=== PATIENT | female | born 1970 | race African-American/Black ===

== ENCOUNTER 2019-02-08 10:34 | Inpatient (IN) | payer OTHER ==
[2019-02-08 10:52] VITALS: BMI 20.5
--- NOTE | 2019-02-08 12:30 | HP ---
CIWA Score - Admission Criteria [facility]ASAS Guidelines: Admission for Medically Managed Detox: Requires at least one of the followin. CIWA greater than 12 2. Seizures within the past 24 hours 3. Delirium tremens within the past 24 hours 4. Hallucinations within the past 24 hours 5. Acute intervention needed for co occurring medical disorder 6. Acute intervention needed for co occurring psychiatric disorder 7. Severe withdrawal that cannot be handled at a lower level of care (continued vomiting, continued diarrhea, abnormal vital signs) requiring intravenous medication and/or fluids 8. Admission ROS [facility] - HPI Allergies/Adverse Reactions: Allergies Allergy/AdvReac Type Severity Reaction Status Date / Time No Known Allergies Allergy Verified 02/08/19 10:47 History of Present Illness: pt here requesting rehab from cocaine and cannabis use , reports 100$ /week every 2 days cocaine via inhalation x 11 years , tobacco 1/ ppd cannabis : denies etoh - occasional pshx ; ventral hernia has appt February 24 w/ surgeon for planned procedure , c-sx , TARYN , GIB s/p GT / removal , mesh placed , back pain 4 children : 12,16, 29, 30 , youngest 2 w/ godmother in [place] Exam Limitations: No Limitations - Ebola screening Have you traveled outside of the country in the last 21 days: No (N) Have you had contact with anyone from an Ebola affected area: No Do you have a fever: No - Review of Systems Constitutional: No Symptoms Reported EENT: reports: No Symptoms Reported Respiratory: reports: No Symptoms reported Cardiac: reports: No Symptoms Reported GI: reports: No Symptoms Reported : reports: No Symptoms Reported Musculoskeletal: reports: See HPI, Back Pain (chronic) Neuro: reports: No Symptoms reported Endocrine: reports: No Symptoms Reported Psychiatric: reports: Orientated x3 Patient History - Smoking Cessation Smoking history: Current every day smoker Have you smoked in the past 12 months: Yes Hx Chewing Tobacco Use: No Initiated information on smoking cessation: No - Substances abused Crack Substance route: Smoking Frequency: 3-6 times per week Amount used: 2BAGS Age of first use: 35 Date of last use: 02/07/19 Family Disease History - Family Disease History Family History: Denies Admission Physical Exam [facility] - Vital Signs Vital Signs: Vital Signs - 24 hr 02/08/19 10:47 Temperature 98.3 F Pulse Rate 78 Respiratory 18 Rate Blood Pressure 144/92 - Physical General Appearance: Yes: No Apparent Distress HEENTM: Yes: EOMI, Normocephalic, Normal Voice, Other (poor dentition , many missing teeth) Respiratory: Yes: Normal Breath Sounds, No Respiratory Distress, No Accessory Muscle Use Neck: Yes: No masses,lesions,Nodules, Trachea in good position Cardiology: Yes: Regular Rhythm, Regular Rate, S1, S2 Abdominal: Yes: Distended, Hernia, Surgical Scar Extremities: Yes: Normal Range of Motion, Non-Tender Neurological: Yes: Fully Oriented, Alert, Motor Strength 5/5 Integumentary: Yes: Warm - Diagnostic (1) Cocaine abuse, episodic Current Visit: Yes Status: Chronic Breathalyzer - Breathalyzer Breathalyzer: 0 Urine Drug Screen - Test Device Lot number: [id number] Expiration date: 11/04/20 - Control Is test valid?: Yes - Results Drug screen NEGATIVE: No Urine drug screen results: THC-Marijuana, POONAM-Cocaine Inpatient Rehab Admission - Rehab Decision to Admit Inpatient rehab admission?: Yes - Initial Determination Are CD services needed?: Yes Free of communicable disease: Yes Not in need of hospitalization: Yes - Rehab Admission Criteria Previous failed treatment: No Poor recovery environment: No Comorbidities: No Lacks judgement: Yes Patient is meeting Inpatient Rehab admission criteria:: Yes
[2019-02-08] MEDS ORDERED: P-EPHED 60MG/TRIPROLIDI 2.5MG TABLET PO PRN (12:46)
[2019-02-08] MEDS ORDERED: MENTHOL/PHENOL 1 EACH UD MM PRN (12:46)
[2019-02-08] MEDS ORDERED: guaiFENesin 200 MG/10 ML 10 ML UNIT-DOSE CUPS PO PRN (12:46)
[2019-02-08] MEDS ORDERED: MAG HYDROX/AL HYDROX/SIMETH 30 ML UNIT-DOSE CUP PO PRN (12:46)
[2019-02-08] MEDS ORDERED: MAGNESIUM CITRATE 300 ML BOTTLE PO PRN (12:46)
[2019-02-08] MEDS ORDERED: TUBERCULIN PPD 5 TU/0.1ML VIAL ID ONE (14:27)
[2019-02-08] MEDS: MAGNESIUM HYDROX 2400MG/30ML ORAL SUSPENSION 30 ML CUP PO PRN (15:24)
[2019-02-08 18:24] LABS: HEMATOCRIT 31.9 % (32.4-45.2); HEMOGLOBIN 9.4 GM/dL (10.7-15.3); MCH 20.4 pg (25.7-33.7); MCHC 29.5 g/dl (32.0-36.0); MEAN CELL VOLUME 69.3 fl (80-96); MEAN PLT VOLUME 8.2 fl (7.5-11.1); PLATELET COUNT 274 K/MM3 (134-434); RBC 4.61 M/mm3 (3.60-5.2); RDW 17.9 % (11.6-15.6); WHITE BLOOD COUNT 4.8 K/mm3 (4.0-10.0)
[2019-02-08 18:59] LABS: ALBUMIN 3.7 g/dl (3.4-5.0); BILIRUBIN,TOTAL 0.4 mg/dL (0.2-1); CALCIUM 9.1 mg/dL (8.5-10.1); CREATININE 1.1 mg/dL (0.55-1.3); POTASSIUM 3.3 mmol/L (3.5-5.1); TOT PROT 7.9 g/dl (6.4-8.2)
[2019-02-08] MEDS: THIAMINE HCL 100 MG TABLET (FP) PO SCH (21:16)
[2019-02-08] MEDS: MELATONIN 5 MG TABLETS PO PRN (21:16)
[2019-02-08 23:50] LABS: URINE COLOR YELLOW
[2019-02-08 23:51] LABS: URINE APPEARANCE CLOUDY; URINE BILIRUBIN NEGATIVE (NEGATIVE); URINE GLUCOSE (UA) NEGATIVE (NEGATIVE); URINE KETONE NEGATIVE (NEGATIVE); URINE LEUK ESTERASE TRACE (NEGATIVE); URINE NITRITE NEGATIVE (NEGATIVE); URINE PROTEIN TRACE (NEGATIVE)
[2019-02-09 00:07] LABS: HYALINE CASTS 5 /lpf (0-8); URINE BACTERIA 94.2 /hpf (NEGATIVE); URINE RBC 0 /hpf (0-4); URINE WBC 3 /hpf (0-5)
[2019-02-09 01:48] LABS: URINE CRYSTALS FEW /hpf
[2019-02-09] MEDS: PRENATAL VITAMINS W/ FOLIC ACID TABLET (FP) PO SCH (09:15)
--- NOTE | 2019-02-09 09:48 | PN ---
[facility] Progress Note Note: Vital Signs Temperature 97.9 F 02/09/19 07:09 Pulse Rate 69 02/09/19 07:09 Respiratory Rate 18 02/09/19 07:09 Blood Pressure 138/90 02/09/19 07:09 O2 Sat by Pulse Oximetry (%) Laboratory Last Values WBC 4.8 K/mm3 (4.0-10.0) 02/08/19 13:00 RBC 4.61 M/mm3 (3.60-5.2) 02/08/19 13:00 Hgb 9.4 GM/dL (10.7-15.3) L 02/08/19 13:00 Hct 31.9 % (32.4-45.2) L 02/08/19 13:00 MCV 69.3 fl (80-96) L 02/08/19 13:00 MCH 20.4 pg (25.7-33.7) L 02/08/19 13:00 MCHC 29.5 g/dl (32.0-36.0) L 02/08/19 13:00 RDW 17.9 % (11.6-15.6) H 02/08/19 13:00 Plt Count 274 K/MM3 (134-434) 02/08/19 13:00 MPV 8.2 fl (7.5-11.1) 02/08/19 13:00 Sodium 143 mmol/L (136-145) 02/08/19 13:00 Potassium 3.3 mmol/L (3.5-5.1) L 02/08/19 13:00 Chloride 105 mmol/L (98-107) 02/08/19 13:00 Carbon Dioxide 31 mmol/L (21-32) 02/08/19 13:00 Anion Gap 6 MMOL/L (8-16) L 02/08/19 13:00 BUN 12 mg/dL (7-18) 02/08/19 13:00 Creatinine 1.1 mg/dL (0.55-1.3) 02/08/19 13:00 Est GFR (CKD-EPI)AfAm 67.79 02/08/19 13:00 Est GFR (CKD-EPI)NonAf 58.49 02/08/19 13:00 Random Glucose 89 mg/dL (74-106) 02/08/19 13:00 Calcium 9.1 mg/dL (8.5-10.1) 02/08/19 13:00 Total Bilirubin 0.4 mg/dL (0.2-1) 02/08/19 13:00 AST 31 U/L (15-37) 02/08/19 13:00 ALT 17 U/L (13-61) 02/08/19 13:00 Alkaline Phosphatase 74 U/L (45-117) 02/08/19 13:00 Total Protein 7.9 g/dl (6.4-8.2) 02/08/19 13:00 Albumin 3.7 g/dl (3.4-5.0) 02/08/19 13:00 Urine Color Yellow 02/08/19 14:00 Urine Appearance Cloudy 02/08/19 14:00 Urine pH 6.0 (5.0-8.0) 02/08/19 14:00 Ur Specific [place] 1.029 (1.010-1.035) 02/08/19 14:00 Urine Protein Trace (NEGATIVE) 02/08/19 14:00 Urine Glucose (UA) Negative (NEGATIVE) 02/08/19 14:00 Urine Ketones Negative (NEGATIVE) 02/08/19 14:00 Urine Blood Negative (NEGATIVE) 02/08/19 14:00 Urine Nitrite Negative (NEGATIVE) 02/08/19 14:00 Urine Bilirubin Negative (NEGATIVE) 02/08/19 14:00 Urine Urobilinogen 1.0 mg/dL (0.2-1.0) 02/08/19 14:00 Ur Leukocyte Esterase Trace (NEGATIVE) 02/08/19 14:00 Urine WBC (Auto) 3 /hpf (0-5) 02/08/19 14:00 Urine RBC (Auto) 0 /hpf (0-4) 02/08/19 14:00 Urine Casts (Auto) 5 /lpf (0-8) 02/08/19 14:00 U Epithel Cells (Auto) 5.0 /HPF (0-5/HPF) 02/08/19 14:00 Urine Crystals (Auto) Few /hpf 02/08/19 14:00 Urine Bacteria (Auto) 94.2 /hpf (NEGATIVE) 02/08/19 14:00 c/o of constipation without any relief with milk of magnesia, reports last BM five days ago, hx of abdominal hernia pending surgery, denies pain, melena, nausea or vomiting. AOx3 no distress no adventitious breath sounds ABD non-tender, non distended , + hernia retractable, + surgical scar full ROM, no gait abnormality dx: anemia, constipation, hypokalemia plan: lactulose TID PO PRN increase PO fluids k-dur 20 qd repeat cbc and repeat potassium in AM Patient encourage to follow up with primary care physician upon discharge for continuity of care continue to monitor
[2019-02-09] MEDS ORDERED: NICOTINE POLACRILEX 2 MG GUM BUC PRN (09:49)
[2019-02-09] MEDS: POTASSIUM CHLORIDE TABS 20 MEQ TABLET.ER (FP) PO SCH (10:05)
[2019-02-09] MEDS: NICOTINE 14 MG/24 HOURS TOPICAL PATCH TD SCH (10:05)
[2019-02-09] MEDS: LACTULOSE 20 GM/30 ML UDC (FOR ORAL USE ONLY) PO PRN (12:27)
[2019-02-09] MEDS: IBUPROFEN 400 MG TABLET (FP) PO PRN (12:46)
[2019-02-09] MEDS: MELATONIN 5 MG TABLETS PO PRN (21:57)
[2019-02-09] MEDS: THIAMINE HCL 100 MG TABLET (FP) PO SCH (21:58)
[2019-02-10] MEDS: PRENATAL VITAMINS W/ FOLIC ACID TABLET (FP) PO SCH (10:15)
[2019-02-10] MEDS: POTASSIUM CHLORIDE TABS 20 MEQ TABLET.ER (FP) PO SCH (10:15)
[2019-02-10] MEDS: NICOTINE 14 MG/24 HOURS TOPICAL PATCH TD SCH (10:16)
[2019-02-10] MEDS: LACTULOSE 20 GM/30 ML UDC (FOR ORAL USE ONLY) PO PRN (10:17)
[2019-02-10 12:06] LABS: BASO % 0.9 % (0-2.0); EOS % 0.4 % (0-4.5); HEMATOCRIT 27.1 % (32.4-45.2); HEMOGLOBIN 8.1 GM/dL (10.7-15.3); LYMPH % 28.9 % (8-40); MCH 20.6 pg (25.7-33.7); MCHC 29.9 g/dl (32.0-36.0); MEAN PLT VOLUME 7.7 fl (7.5-11.1); MONO % 9.3 % (3.8-10.2); NEUT % 60.5 % (42.8-82.8); PLATELET COUNT 230 K/MM3 (134-434); RBC 3.93 M/mm3 (3.60-5.2); RDW 18.1 % (11.6-15.6); WHITE BLOOD COUNT 4.3 K/mm3 (4.0-10.0)
[2019-02-10 13:57] LABS: PLATELET ESTIMATE ADEQUATE
[2019-02-10] MEDS: IBUPROFEN 400 MG TABLET (FP) PO PRN (21:25)
[2019-02-10] MEDS: MELATONIN 5 MG TABLETS PO PRN (21:25)
[2019-02-10] MEDS: THIAMINE HCL 100 MG TABLET (FP) PO SCH (21:26)
--- NOTE | 2019-02-11 10:02 | PN ---
[facility] Progress Note Note: 48 years old female admitted on 02/08/19 for crack rehab K+ 3.3 on 02/08/19 treated with K+ supplement od 02/10/19 K+ 3.2 increase K+ supplement bid repeat K+ on 02/15/19 Laboratory Last Values WBC 4.3 K/mm3 (4.0-10.0) 02/10/19 08:50 RBC 3.93 M/mm3 (3.60-5.2) 02/10/19 08:50 Hgb 8.1 GM/dL (10.7-15.3) L 02/10/19 08:50 Hct 27.1 % (32.4-45.2) L D 02/10/19 08:50 MCV 69.0 fl (80-96) L 02/10/19 08:50 MCH 20.6 pg (25.7-33.7) L 02/10/19 08:50 MCHC 29.9 g/dl (32.0-36.0) L 02/10/19 08:50 RDW 18.1 % (11.6-15.6) H 02/10/19 08:50 Plt Count 230 K/MM3 (134-434) 02/10/19 08:50 MPV 7.7 fl (7.5-11.1) 02/10/19 08:50 Absolute Neuts (auto) 2.6 K/mm3 (1.5-8.0) 02/10/19 08:50 Neutrophils % 60.5 % (42.8-82.8) 02/10/19 08:50 Lymphocytes % 28.9 % (8-40) 02/10/19 08:50 Monocytes % 9.3 % (3.8-10.2) 02/10/19 08:50 Eosinophils % 0.4 % (0-4.5) 02/10/19 08:50 Basophils % 0.9 % (0-2.0) 02/10/19 08:50 Nucleated RBC % 0 % (0-0) 02/10/19 08:50 Platelet Estimate Adequate 02/10/19 08:50 Poikilocytosis 2+ 02/10/19 08:50 Microcytosis 2+ 02/10/19 08:50 Sodium 143 mmol/L (136-145) 02/08/19 13:00 Potassium 3.2 mmol/L (3.5-5.1) L 02/10/19 08:50 Chloride 105 mmol/L (98-107) 02/08/19 13:00 Carbon Dioxide 31 mmol/L (21-32) 02/08/19 13:00 Anion Gap 6 MMOL/L (8-16) L 02/08/19 13:00 BUN 12 mg/dL (7-18) 02/08/19 13:00 Creatinine 1.1 mg/dL (0.55-1.3) 02/08/19 13:00 Est GFR (CKD-EPI)AfAm 67.79 02/08/19 13:00 Est GFR (CKD-EPI)NonAf 58.49 02/08/19 13:00 Random Glucose 89 mg/dL (74-106) 02/08/19 13:00 Calcium 9.1 mg/dL (8.5-10.1) 02/08/19 13:00 Total Bilirubin 0.4 mg/dL (0.2-1) 02/08/19 13:00 AST 31 U/L (15-37) 02/08/19 13:00 ALT 17 U/L (13-61) 02/08/19 13:00 Alkaline Phosphatase 74 U/L (45-117) 02/08/19 13:00 Total Protein 7.9 g/dl (6.4-8.2) 02/08/19 13:00 Albumin 3.7 g/dl (3.4-5.0) 02/08/19 13:00 Urine Color Yellow 02/08/19 14:00 Urine Appearance Cloudy 02/08/19 14:00 Urine pH 6.0 (5.0-8.0) 02/08/19 14:00 Ur Specific [place] 1.029 (1.010-1.035) 02/08/19 14:00 Urine Protein Trace (NEGATIVE) 02/08/19 14:00 Urine Glucose (UA) Negative (NEGATIVE) 02/08/19 14:00 Urine Ketones Negative (NEGATIVE) 02/08/19 14:00 Urine Blood Negative (NEGATIVE) 02/08/19 14:00 Urine Nitrite Negative (NEGATIVE) 02/08/19 14:00 Urine Bilirubin Negative (NEGATIVE) 02/08/19 14:00 Urine Urobilinogen 1.0 mg/dL (0.2-1.0) 02/08/19 14:00 Ur Leukocyte Esterase Trace (NEGATIVE) 02/08/19 14:00 Urine WBC (Auto) 3 /hpf (0-5) 02/08/19 14:00 Urine RBC (Auto) 0 /hpf (0-4) 02/08/19 14:00 Urine Casts (Auto) 5 /lpf (0-8) 02/08/19 14:00 U Epithel Cells (Auto) 5.0 /HPF (0-5/HPF) 02/08/19 14:00 Urine Crystals (Auto) Few /hpf 02/08/19 14:00 Urine Bacteria (Auto) 94.2 /hpf (NEGATIVE) 02/08/19 14:00 RPR Titer Nonreactive (NONREACTIVE) 02/08/19 13:00
[2019-02-11] MEDS: PRENATAL VITAMINS W/ FOLIC ACID TABLET (FP) PO SCH (10:12)
[2019-02-11] MEDS: NICOTINE 14 MG/24 HOURS TOPICAL PATCH TD SCH (10:12)
[2019-02-11] MEDS: LACTULOSE 20 GM/30 ML UDC (FOR ORAL USE ONLY) PO PRN (10:17)
[2019-02-11] MEDS: POTASSIUM CHLORIDE TABS 20 MEQ TABLET.ER (FP) PO SCH ×3 (10:48→21:16)
--- NOTE | 2019-02-11 12:01 | PN ---
[facility] Progress Note Note: PT REQUESTS LACTULOSE ONCE DAILY AND NOT TID PRN. HOLD IF DIARRHEA.
[2019-02-11] MEDS: THIAMINE HCL 100 MG TABLET (FP) PO SCH (21:16)
[2019-02-11] MEDS: MELATONIN 5 MG TABLETS PO PRN (21:16)
[2019-02-12] MEDS: IBUPROFEN 400 MG TABLET (FP) PO PRN ×2 (00:24→21:05)
[2019-02-12] MEDS: ACETAMINOPHEN 325 MG TABLET (FP) PO PRN ×2 (06:17→10:24)
[2019-02-12] MEDS: LACTULOSE 20 GM/30 ML UDC (FOR ORAL USE ONLY) PO SCH (10:22)
[2019-02-12] MEDS: PRENATAL VITAMINS W/ FOLIC ACID TABLET (FP) PO SCH (10:22)
[2019-02-12] MEDS: POTASSIUM CHLORIDE TABS 20 MEQ TABLET.ER (FP) PO SCH ×2 (10:22→21:03)
[2019-02-12] MEDS: NICOTINE 14 MG/24 HOURS TOPICAL PATCH TD SCH (10:23)
[2019-02-12] MEDS ORDERED: PT OWN MED DRAWER 7, Y5N ONE ×2 (19:39→22:45)
[2019-02-12] MEDS: THIAMINE HCL 100 MG TABLET (FP) PO SCH (21:03)
[2019-02-12] MEDS: hydrOXYzine PAMOATE 25 MG CAPSULE (FP) PO PRN (21:03)
[2019-02-12] MEDS ORDERED: INSULIN (NOVOLOG) ASPART 100 UNITS/ML 10ML VIAL ONE (22:48)
[2019-02-13] MEDS: PRENATAL VITAMINS W/ FOLIC ACID TABLET (FP) PO SCH (10:31)
[2019-02-13] MEDS: LACTULOSE 20 GM/30 ML UDC (FOR ORAL USE ONLY) PO SCH (10:32)
[2019-02-13] MEDS: POTASSIUM CHLORIDE TABS 20 MEQ TABLET.ER (FP) PO SCH ×2 (10:32→21:23)
[2019-02-13] MEDS: ACETAMINOPHEN 325 MG TABLET (FP) PO PRN (10:33)
[2019-02-13] MEDS: NICOTINE 14 MG/24 HOURS TOPICAL PATCH TD SCH (10:39)
--- NOTE | 2019-02-13 15:45 | PN ---
[facility] Progress Note Note: complaint of pain in the gum and tooth had been seen by dentist stated was prescribed antibiotics amoxicllin 500mgs po tid examination poor dental with gingivitis with pain Vital Signs Temperature 97.8 F 02/13/19 07:32 Pulse Rate 72 02/13/19 07:32 Respiratory Rate 18 02/13/19 07:32 Blood Pressure 132/82 02/13/19 07:32 O2 Sat by Pulse Oximetry (%) treatment amocicillin 500 mgs po tid for 7 days,follow up with dentist after discharge
[2019-02-13] MEDS: AMOXICILLIN 500 MG CAPSULE (FP) PO SCH ×2 (17:39→21:23)
[2019-02-13] MEDS: THIAMINE HCL 100 MG TABLET (FP) PO SCH (21:23)
[2019-02-13] MEDS: MELATONIN 5 MG TABLETS PO PRN (21:23)
[2019-02-13] MEDS: IBUPROFEN 400 MG TABLET (FP) PO PRN (21:24)
[2019-02-13] MEDS: hydrOXYzine PAMOATE 25 MG CAPSULE (FP) PO PRN (21:24)
[2019-02-14] MEDS: AMOXICILLIN 500 MG CAPSULE (FP) PO SCH ×3 (06:16→21:15)
[2019-02-14] MEDS: LACTULOSE 20 GM/30 ML UDC (FOR ORAL USE ONLY) PO SCH (10:06)
[2019-02-14] MEDS: POTASSIUM CHLORIDE TABS 20 MEQ TABLET.ER (FP) PO SCH ×2 (10:07→21:15)
[2019-02-14] MEDS: PRENATAL VITAMINS W/ FOLIC ACID TABLET (FP) PO SCH (10:07)
[2019-02-14] MEDS: NICOTINE 14 MG/24 HOURS TOPICAL PATCH TD SCH (10:08)
--- NOTE | 2019-02-14 10:16 | PN ---
[facility] Progress Note Note: Potassium is now within normal range; potassium supplementation discontinued after today's doses. CBC, BMP 02/10/19 08:50 02/14/19 07:00
[2019-02-14] MEDS: THIAMINE HCL 100 MG TABLET (FP) PO SCH (21:14)
[2019-02-14] MEDS: ACETAMINOPHEN 325 MG TABLET (FP) PO PRN (21:16)
[2019-02-14] MEDS: hydrOXYzine PAMOATE 25 MG CAPSULE (FP) PO PRN (21:17)
[2019-02-15] MEDS: MAGNESIUM HYDROX 2400MG/30ML ORAL SUSPENSION 30 ML CUP PO PRN (06:12)
[2019-02-15] MEDS: AMOXICILLIN 500 MG CAPSULE (FP) PO SCH ×3 (06:12→21:23)
--- NOTE | 2019-02-15 09:57 | CONSULT ---
[facility] Psychiatric Consult - Data Date of interview: 02/15/19 Admission source: [facility] Identifying data: Patient is a 48 year old female, mother of four, unemployed, and is currently residing with mother. This is one of multiple admissions for patient in rehab. Patient admitted to for alcohol, marijuana, and cocaine dependence. Substance Abuse History: - Smoking Cessation. Smoking history: Current every day smoker. Have you smoked in the past 12 months: Yes. Hx Chewing Tobacco Use : No. Initiated information on smoking cessation: No. - Substances abused. * * Crack. Substance route: Smoking. Frequency: 3-6 times per week. Amount used : 2BAGS. Age of first use: 35. Date of last use: 02/07/19 Medical History: ventral hernia has appt February 24 w/ surgeon for planned procedure , c-sx , TARYN , GIB s/p GT / removal , mesh placed , back pain Psychiatric History: Patient denies h/o psychiatric hospitalizations, and suicide attempt. Patient reports past history of outpatient psychiatric care approximately 8 years ago to address insomnnia. She was prescribed trazodone 50mg which was eventually increased to 150mg HS. Ms. Paniagua last accepted trazodone 8 years ago. Patient denies h/o psychotic symptoms but reports feeling sad and depressed since CPS took her children away 10 years ago. At present patient reports difficulty sleeping. Physical/Sexual Abuse/Trauma History: denies. Mental Status Exam - Mental Status Exam Alert and Oriented to: Time, Place, Person Cognitive Function: Good Patient Appearance: Well Groomed Mood: Sad Affect: Appropriate Patient Behavior: Appropriate, Cooperative Speech Pattern: Appropriate Voice Loudness: Normal Thought Process: Goal Oriented Thought Disorder: Not Present Hallucinations: Denies Suicidal Ideation: Denies Homicidal Ideation: Denies Insight/Judgement: Poor Sleep: Poorly Appetite: Fair Muscle strength/Tone: Normal Gait/Station: Normal Psychiatric Findings - Problem List ([place] 1, 2,3) (1) Marijuana dependence Current Visit: Yes Status: Chronic (2) Cocaine abuse, episodic Current Visit: Yes Status: Chronic (3) Substance-induced sleep disorder Current Visit: Yes Status: Acute (4) Substance induced mood disorder Current Visit: Yes Status: Suspected - Initial Treatment Plan Initial Treatment Plan: Psychoeducation provided. Rehab in progress. Will order Trazodone 50mg Hs. Benefits and side effects discussed. Verbal consent given.
[2019-02-15] MEDS: PRENATAL VITAMINS W/ FOLIC ACID TABLET (FP) PO SCH (09:59)
[2019-02-15] MEDS: NICOTINE 14 MG/24 HOURS TOPICAL PATCH TD SCH (09:59)
[2019-02-15] MEDS ORDERED: LACTULOSE 20 GM/30 ML UDC (FOR ORAL USE ONLY) PO SCH (10:00)
[2019-02-15] MEDS: DOCUSATE SODIUM 100 MG CAPSULE (FP) PO SCH (21:25)
[2019-02-15] MEDS: IBUPROFEN 400 MG TABLET (FP) PO PRN (21:25)
[2019-02-15] MEDS: traZODone HCL 50 MG TABLET (FP) PO SCH (21:25)
[2019-02-15] MEDS: MELATONIN 5 MG TABLETS PO PRN (21:26)
[2019-02-15] MEDS: THIAMINE HCL 100 MG TABLET (FP) PO SCH (21:50)
[2019-02-16] MEDS: AMOXICILLIN 500 MG CAPSULE (FP) PO SCH ×3 (06:32→21:35)
[2019-02-16] MEDS: LACTULOSE 20 GM/30 ML UDC (FOR ORAL USE ONLY) PO SCH (10:02)
[2019-02-16] MEDS: PRENATAL VITAMINS W/ FOLIC ACID TABLET (FP) PO SCH (10:03)
[2019-02-16] MEDS: NICOTINE 14 MG/24 HOURS TOPICAL PATCH TD SCH (10:03)
[2019-02-16] MEDS: IBUPROFEN 400 MG TABLET (FP) PO PRN (10:04)
[2019-02-16] MEDS ORDERED: PT OWN MED DRAWER 7, Y5N ONE ×2 (21:27→23:21)
[2019-02-16] MEDS: traZODone HCL 50 MG TABLET (FP) PO SCH (21:35)
[2019-02-16] MEDS: DOCUSATE SODIUM 100 MG CAPSULE (FP) PO SCH (21:35)
[2019-02-16] MEDS: ACETAMINOPHEN 325 MG TABLET (FP) PO PRN (21:36)
[2019-02-16] MEDS: hydrOXYzine PAMOATE 25 MG CAPSULE (FP) PO PRN (21:36)
[2019-02-16] MEDS: THIAMINE HCL 100 MG TABLET (FP) PO SCH (21:37)
[2019-02-16] MEDS: MELATONIN 5 MG TABLETS PO PRN (21:37)
[2019-02-17] MEDS: AMOXICILLIN 500 MG CAPSULE (FP) PO SCH ×3 (06:17→21:36)
--- NOTE | 2019-02-17 09:11 | PN ---
[facility] Progress Note Note: Psychiatric nurse practitioner note: Patient reports difficulty sleeping. Will d/c Trazodone 50mg and order Trazodone 100mg HS. Verbal consent given.
[2019-02-17] MEDS: PRENATAL VITAMINS W/ FOLIC ACID TABLET (FP) PO SCH (10:22)
[2019-02-17] MEDS: NICOTINE 14 MG/24 HOURS TOPICAL PATCH TD SCH (10:22)
[2019-02-17] MEDS: LACTULOSE 20 GM/30 ML UDC (FOR ORAL USE ONLY) PO SCH (10:22)
[2019-02-17] MEDS: hydrOXYzine PAMOATE 25 MG CAPSULE (FP) PO PRN (21:36)
[2019-02-17] MEDS: DOCUSATE SODIUM 100 MG CAPSULE (FP) PO SCH (21:36)
[2019-02-17] MEDS: THIAMINE HCL 100 MG TABLET (FP) PO SCH (21:36)
[2019-02-17] MEDS: traZODone HCL 100 MG TABLET (FP) PO SCH (21:38)
[2019-02-17] MEDS: ACETAMINOPHEN 325 MG TABLET (FP) PO PRN (21:38)
[2019-02-17] MEDS ORDERED: PT OWN MED DRAWER 7, Y5N ONE (22:12)
[2019-02-18] MEDS: AMOXICILLIN 500 MG CAPSULE (FP) PO SCH ×3 (06:39→21:17)
--- NOTE | 2019-02-18 09:25 | PN ---
[facility] Progress Note Note: Psychiatric nurse practitioner note: Patient continues to report poor sleep despite accepting trazodone 100mg HS last night. Patient refused an increase in Melatonin. Will order Belsomra 10mg HS. Benefits and side effects discussed. Verbal consent given.
[2019-02-18] MEDS: NICOTINE 14 MG/24 HOURS TOPICAL PATCH TD SCH (10:55)
[2019-02-18] MEDS: PRENATAL VITAMINS W/ FOLIC ACID TABLET (FP) PO SCH (10:55)
[2019-02-18] MEDS: LACTULOSE 20 GM/30 ML UDC (FOR ORAL USE ONLY) PO SCH (10:57)
--- NOTE | 2019-02-18 11:47 | PN ---
[facility] Progress Note (SOAP) Subjective: PT IS SCHEDULED TO DISCHARGE ON 02/21/19. PT MET WITH COUNSELLING AND HAS BEEN REFERRED TO THE [facility], [address] [place] [address], [place], [place] FOR CD AFTERCARE. PT REPORTS SH HAS PRIMARY CARE WITH DR. DUVALL IN [place], [place]. ALERT O X 3. DENIES S/H/I. Objective: 02/18/19 11:46 Vital Signs - 24 hr 02/18/19 02/18/19 02/18/19 00:30 03:30 07:24 Temperature 97.8 F Pulse Rate 76 Respiratory 18 18 18 Rate Blood Pressure 118/76 Laboratory Tests 02/08/19 02/08/19 02/08/19 13:00 13:00 13:00 WBC 4.8 RBC 4.61 Hgb 9.4 L Hct 31.9 L MCV 69.3 L MCH 20.4 L MCHC 29.5 L RDW 17.9 H Plt Count 274 MPV 8.2 Absolute Neuts (auto) Neutrophils % Lymphocytes % Monocytes % Eosinophils % Basophils % Nucleated RBC % Platelet Estimate Poikilocytosis Microcytosis Sodium 143 Potassium 3.3 L Chloride 105 Carbon Dioxide 31 Anion Gap 6 L BUN 12 Creatinine 1.1 Est GFR (CKD-EPI)AfAm 67.79 Est GFR (CKD-EPI)NonAf 58.49 Random Glucose 89 Calcium 9.1 Total Bilirubin 0.4 AST 31 ALT 17 Alkaline Phosphatase 74 Total Protein 7.9 Albumin 3.7 Urine Color Urine Appearance Urine pH Ur Specific [place] Urine Protein Urine Glucose (UA) Urine Ketones Urine Blood Urine Nitrite Urine Bilirubin Urine Urobilinogen Ur Leukocyte Esterase Urine WBC (Auto) Urine RBC (Auto) Urine Casts (Auto) U Epithel Cells (Auto) Urine Crystals (Auto) Urine Bacteria (Auto) RPR Titer Nonreactive 02/08/19 02/10/19 02/10/19 14:00 08:50 08:50 WBC 4.3 RBC 3.93 Hgb 8.1 L Hct 27.1 L D MCV 69.0 L MCH 20.6 L MCHC 29.9 L RDW 18.1 H Plt Count 230 MPV 7.7 Absolute Neuts (auto) 2.6 Neutrophils % 60.5 Lymphocytes % 28.9 Monocytes % 9.3 Eosinophils % 0.4 Basophils % 0.9 Nucleated RBC % 0 Platelet Estimate Adequate Poikilocytosis 2+ Microcytosis 2+ Sodium Potassium 3.2 L Chloride Carbon Dioxide Anion Gap BUN Creatinine Est GFR (CKD-EPI)AfAm Est GFR (CKD-EPI)NonAf Random Glucose Calcium Total Bilirubin AST ALT Alkaline Phosphatase Total Protein Albumin Urine Color Yellow Urine Appearance Cloudy Urine pH 6.0 Ur Specific [place] 1.029 Urine Protein Trace Urine Glucose (UA) Negative Urine Ketones Negative Urine Blood Negative Urine Nitrite Negative Urine Bilirubin Negative Urine Urobilinogen 1.0 Ur Leukocyte Esterase Trace Urine WBC (Auto) 3 Urine RBC (Auto) 0 Urine Casts (Auto) 5 U Epithel Cells (Auto) 5.0 Urine Crystals (Auto) Few Urine Bacteria (Auto) 94.2 RPR Titer 02/14/19 07:00 WBC RBC Hgb Hct MCV MCH MCHC RDW Plt Count MPV Absolute Neuts (auto) Neutrophils % Lymphocytes % Monocytes % Eosinophils % Basophils % Nucleated RBC % Platelet Estimate Poikilocytosis Microcytosis Sodium Potassium 3.6 Chloride Carbon Dioxide Anion Gap BUN Creatinine Est GFR (CKD-EPI)AfAm Est GFR (CKD-EPI)NonAf Random Glucose Calcium Total Bilirubin AST ALT Alkaline Phosphatase Total Protein Albumin Urine Color Urine Appearance Urine pH Ur Specific [place] Urine Protein Urine Glucose (UA) Urine Ketones Urine Blood Urine Nitrite Urine Bilirubin Urine Urobilinogen Ur Leukocyte Esterase Urine WBC (Auto) Urine RBC (Auto) Urine Casts (Auto) U Epithel Cells (Auto) Urine Crystals (Auto) Urine Bacteria (Auto) RPR Titer Home Medications Medication Instructions Recorded traZODone HCL [Desyrel -] 100 mg PO HS #30 tablet 02/20/19 Assessment: 02/18/19 11:47 NAD MEDICALLY STABLE Plan: FOLLOW UP WITH CD AFTERCARE RECOMMENDED. FOLLOW UP WITH PCP FOR MEDICAL MANAGEMENT 1-2 WEEKS AFTER DISCHARGE.
[2019-02-18] MEDS: MAGNESIUM HYDROX 2400MG/30ML ORAL SUSPENSION 30 ML CUP PO PRN (15:57)
[2019-02-18] MEDS: DOCUSATE SODIUM 100 MG CAPSULE (FP) PO SCH (21:17)
[2019-02-18] MEDS: hydrOXYzine PAMOATE 25 MG CAPSULE (FP) PO PRN (21:17)
[2019-02-18] MEDS: THIAMINE HCL 100 MG TABLET (FP) PO SCH (21:17)
[2019-02-18] MEDS: traZODone HCL 100 MG TABLET (FP) PO SCH (21:17)
[2019-02-18] MEDS: IBUPROFEN 400 MG TABLET (FP) PO PRN (21:19)
[2019-02-18] MEDS: SUVOREXANT 10 MG TABLET PO PRN (21:20)
[2019-02-18] MEDS ORDERED: PT OWN MED DRAWER 7, Y5N ONE (22:59)
[2019-02-19] MEDS: AMOXICILLIN 500 MG CAPSULE (FP) PO SCH ×3 (06:29→21:03)
[2019-02-19] MEDS: PRENATAL VITAMINS W/ FOLIC ACID TABLET (FP) PO SCH (10:04)
[2019-02-19] MEDS: LACTULOSE 20 GM/30 ML UDC (FOR ORAL USE ONLY) PO SCH (10:04)
[2019-02-19] MEDS: NICOTINE 14 MG/24 HOURS TOPICAL PATCH TD SCH (10:04)
[2019-02-19] MEDS: DOCUSATE SODIUM 100 MG CAPSULE (FP) PO SCH (21:03)
[2019-02-19] MEDS: THIAMINE HCL 100 MG TABLET (FP) PO SCH (21:03)
[2019-02-19] MEDS: traZODone HCL 100 MG TABLET (FP) PO SCH (21:03)
[2019-02-19] MEDS: MELATONIN 5 MG TABLETS PO PRN (21:04)
[2019-02-19] MEDS: SUVOREXANT 10 MG TABLET PO PRN (21:06)
[2019-02-20] MEDS: AMOXICILLIN 500 MG CAPSULE (FP) PO SCH ×2 (06:55→13:34)
[2019-02-20] MEDS: ACETAMINOPHEN 325 MG TABLET (FP) PO PRN (06:55)
[2019-02-20] MEDS: PRENATAL VITAMINS W/ FOLIC ACID TABLET (FP) PO SCH (09:05)
[2019-02-20] MEDS: LACTULOSE 20 GM/30 ML UDC (FOR ORAL USE ONLY) PO SCH (09:05)
[2019-02-20] MEDS: NICOTINE 14 MG/24 HOURS TOPICAL PATCH TD SCH (09:06)
--- NOTE | 2019-02-20 14:28 | PN ---
[facility] Progress Note Note: Patient is scheduled for discharged tomorrow. Script for 30 days supply of Trazaddone 100 mg/hs will be electronically transmitted to [facility] at [address] [place], [place] [id number]
[2019-02-20] MEDS: traZODone HCL 100 MG TABLET (FP) PO SCH (21:02)
[2019-02-20] MEDS: DOCUSATE SODIUM 100 MG CAPSULE (FP) PO SCH (21:02)
[2019-02-20] MEDS: THIAMINE HCL 100 MG TABLET (FP) PO SCH (21:02)
[2019-02-20] MEDS: MELATONIN 5 MG TABLETS PO PRN (21:03)
[2019-02-20] MEDS: SUVOREXANT 10 MG TABLET PO PRN (21:05)
[2019-02-21 07:11] VITALS: BP 111/75; PULSE 79; TEMP 97.8
--- NOTE | 2019-02-21 12:36 | PN ---
S Progress Note Note: PT COMPLETED AND DISCHARGED TODAY. ALERT O X 3. DENIES S/H/I. D/W PT TO FOLLOW UP WITH CD AFTERCARE/MEDICAL RECOMMENDATIONS. Vital Signs - 24 hr 02/21/19 02/21/19 03:30 07:11 Temperature 97.8 F Pulse Rate 79 Respiratory 16 18 Rate Blood Pressure 111/75
== END 2019-02-21 09:20 | disposition home or self-care (01) | DRG 772 ==
LOC: YASAS 10:34 → Y3E 13:21
PROVIDERS: ADMIT Neuromusculoskeletal Medicine & OMM; ATTEND Neuromusculoskeletal Medicine & OMM
PROC: HZ42ZZZ Group Counseling for Substance Abuse Treatment, Cognitive-Behavioral (ICD-10-PCS; principal; 2019-02-08)
DX: F10.20 Alcohol dependence, uncomplicated (principal); F14.10 Cocaine abuse, uncomplicated; F17.210 Nicotine dependence, cigarettes, uncomplicated; F19.24 Other psychoactive substance dependence with psychoactive substance-induced mood disorder; F19.282 Other psychoactive substance dependence with psychoactive substance-induced sleep disorder; K05.00 Acute gingivitis, plaque induced; K08.9 Disorder of teeth and supporting structures, unspecified; D64.9 Anemia, unspecified; K59.00 Constipation, unspecified; E87.6 Hypokalemia
CPT/HCPCS: 36415; 80053; 81003; 84132; 85025; 85027; 86593